=== PATIENT | male | born 1995 | race Caucasian/White ===

== ENCOUNTER 2017-02-26 15:04 | Emergency (ER) | payer BC ==
[~2017-02-26] VITALS: Ht 170.2 cm; Wt 91.5 kg
[2017-02-26 15:12] VITALS: Ht 170.2 cm; Wt 91.5 kg
[2017-02-26] MEDS ORDERED: CLOT30CR24 TOP (15:54)
[2017-02-26] MEDS ORDERED: MUPI15CR9 TOP (15:54)
--- NOTE | 2017-02-26 17:00 | ERD ---
ER Documentation Chief Complaint Date/Time DATE: 02/26/17 TIME: 16:58 Chief Complaint penile redness HPI 22-year-old male patient with no significant past medical history presents to the ED complaining of swelling surrounding the tip of penis that started about 2 days ago. States that the last time he had unprotected sexual intercourse was 3 months ago. Denies any rashes. Denies any penile pain. Denies any scrotal pain, dysuria, urgency, frequency, hematuria, abdominal pain, nausea, vomiting, diarrhea, penile discharge. States that he is not concerned about STDs however will get tested with his primary care physician. ROS All systems reviewed and are negative except as per history of present illness. Medications Home Meds Active Scripts Clotrimazole* (Clotrimazole* AF) 1% - 30 Gm Cream.gm., 1 APPLIC TOP BID for 7 Days, #1 TUB Prov:GODFREY RENDON PA-C 02/26/17 Mupirocin Calcium* (Mupirocin*) 2% - 15 Gram Cream..g., 1 APPLIC TOP TID, #1 TUB Prov:GODFREY RENDON PA-C 02/26/17 Allergies Allergies: Coded Allergies: No Known Drug Allergy (Verified Allergy, Mild, 03/27/14) PMhx/Soc History of Surgery: No Anesthesia Reaction: No Hx Neurological Disorder: No Hx Respiratory Disorders: No Hx Cardiac Disorders: No Hx Psychiatric Problems: No Hx Miscellaneous Medical Probl: No Hx Alcohol Use: No Hx Substance Use: No Hx Tobacco Use: No Physical Exam Vitals Vital Signs Date Time Temp Pulse Resp B/P Pulse Ox O2 Delivery O2 Flow Rate FiO2 02/26/17 15:12 98.2 74 18 155/94 98 Physical Exam Const: [id number], well-nourished. In no acute distress. Head: Atraumatic, normocephalic Eyes: Normal Conjunctiva without injection. No purulent discharge. ENT: Normal external ear, nose. Moist oropharynx without tonsillar exudates. Non -erythematous pharynx. Uvula midline. No drooling. No trismus. Neck: No cervical midline tenderness. Full range of motion. No meningismus. No cervical lymphadenopathy. No JVD. Resp: Clear to auscultation bilaterally. No wheezing, rhonchi, rales, or crackles. No accessory muscle use. No retractions. Cardio: Regular rate and rhythm. No murmurs, rubs or gallops. Abd: Soft, nontender, non distended. Normal bowel sounds. No palpable masses. No rebound tenderness. No guarding. Negative McBurney's point. Negative psoas sign. Negative obturator sign. : Uncircumcised penis. Slightly erythematous surrounding the glans penis. No phimosis. No paraphimosis. No hernias. No rashes. No warmth to touch. No tenderness to palpation. No penile discharge. Skin: No petechiae or rashes Back: No midline tenderness. No CVA tenderness. Ext: No cyanosis, or edema. Neur: Awake and alert. Normal gait. Normal coordination. Psych: Normal Mood and Affect Procedures/MDM 22-year-old male patient with no significant past medical history presents to the ED complaining of swelling surrounding the glans penis. Patient is afebrile nontoxic appearing. Patient has normal vital signs. Patient symptoms are likely secondary to balanitis. Low suspicion for testicular torsion, STDs, HSV, paraphimosis, phimosis, hernias, UTI or other emergent conditions. Discharge medications: Clotrimazole, Mupirocin Follow up with primary care physician in 1-2 days. Instructed patient to return to the ED sooner for any worsening symptoms. Patient's questions were answered. Patient understood and agreed with discharge plan. Patient discharged stable. Departure Diagnosis: Primary Impression: Balanitis Condition: Stable Patient Instructions: Balanitis Referrals: [facility] YOU HAVE RECEIVED A MEDICAL SCREENING EXAM AND THE RESULTS INDICATE THAT YOU DO NOT HAVE A CONDITION THAT REQUIRES URGENT TREATMENT IN THE EMERGENCY DEPARTMENT. FURTHER EVALUATION AND TREATMENT OF YOUR CONDITION CAN WAIT UNTIL YOU ARE SEEN IN YOUR DOCTORS OFFICE WITHIN THE NEXT 1-2 DAYS. IT IS YOUR RESPONSIBILITY TO MAKE AN APPOINTMENT FOR FOLOW-UP CARE. IF YOU HAVE A PRIMARY DOCTOR --you should call your primary doctor and schedule an appointment IF YOU DO NOT HAVE A PRIMARY DOCTOR YOU CAN CALL OUR PHYSICIAN REFERRAL HOTLINE AT IF YOU CAN NOT AFFORD TO SEE A PHYSICIAN YOU CAN CHOSE FROM THE FOLLOWING [facility] [address] [address] [facility] [address] [facility] [facility] [address] [facility] [address] [facility] [address] [facility]. [facility] [address] [facility] YOU HAVE RECEIVED A MEDICAL SCREENING EXAM AND THE RESULTS INDICATE THAT YOU DO NOT HAVE A CONDITION THAT REQUIRES URGENT TREATMENT IN THE EMERGENCY DEPARTMENT. FURTHER EVALUATION AND TREATMENT OF YOUR CONDITION CAN WAIT UNTIL YOU ARE SEEN IN YOUR DOCTORS OFFICE WITHIN THE NEXT 1-2 DAYS. IT IS YOUR RESPONSIBILITY TO MAKE AN APPOINTMENT FOR FOLOW-UP CARE. IF YOU HAVE A PRIMARY DOCTOR --you should call your primary doctor and schedule and appointment IF YOU DO NOT HAVE A PRIMARY DOCTOR YOU CAN CALL OUR PHYSICIAN REFERRAL HOTLINE AT . IF YOU CAN NOT AFFORD TO SEE A PHYSICIAN YOU CAN CHOSE FROM THE FOLLOWING ON LICENSE OF [facility] INSTITUTIONS: [facility] [address] [place] [address] [facility] [address] [place] [address] [facility] [address] [place] [address] [facility] Additional Instructions: Call your primary care doctor TOMORROW for an appointment during the next 1-2 days.See the doctor sooner or return here if your condition worsens before your appointment time. GODFREY RENDON PA-C Feb 26, 2017 17:00
== END 2017-02-26 17:06 | disposition home or self-care (01) ==
LOC: FTE 15:04
DX: N48.1 Balanitis (principal)
CPT/HCPCS: 99283